=== PATIENT | female | born 1970 | race Caucasian/White ===

== ENCOUNTER 2018-03-17 16:57 | Emergency (ER) | payer MEDICARE, SELFPAY ==
[2018-03-17 17:04] VITALS: BP 155/108; PULSE 98; RESP 17; TEMP 36.7; O2SAT 100; BMI 27.7
[2018-03-17 18:05] LABS: Bacteria Urine None Seen; RBC Urine None Seen (0-5/HPF)
[2018-03-17 18:26] LABS: Appearance Urine UA CLEAR; Bilirubin Urine UA NEGATIVE (NEGATIVE); Color Urine UA YELLOW; Glucose Urine UA NEGATIVE (Normal); Ketones Urine UA NEGATIVE (NEGATIVE); Leukocyte Esterase Urine UA NEGATIVE (NEGATIVE); Nitrite Urine UA Negative (Negative); Occult Blood Urine UA NEGATIVE (Negative); Protein Urine UA NEGATIVE (Negative); Specific Gravity Urine UA <=1.005 (1.000-1.035); Urobilinogen Urine UA 0.2 E.U./dL (0.2); pH Urine UA 6.5 (4.5-8.0)
[2018-03-17 18:27] LABS: Culture Indicated Urine Cult Not Indicated; Squamous Epithelial Cell Urine 0-1 /HPF; WBC Urine 0-1/HPF (0-5/HPF)
--- NOTE | 2018-03-17 18:37 | DI.CT.S_ITS ---
PROCEDURE: CT ABDOMEN PELVIS W CON INDICATIONS: left lateral abd pain at site of mesh x 4 for prior TECHNIQUE: After the administration of oral and intravenous contrast, 5 mm thick sections acquired from the diaphragms to the symphysis. 5 mm thick coronal and sagittal reformats were performed. For radiation dose reduction, the following was used: automated exposure control, adjustment of mA and/or kV according to patient size. COMPARISON: None. FINDINGS: Image quality: Excellent. ABDOMEN: Lung bases: Lung bases are clear. Heart size is normal. Solid organs: Mild hepatic steatosis. Gallbladder surgically absent. Biliary system is non-dilated. Pancreas enhances normally. Spleen is normal in size and enhancement. No adrenal nodules. Punctate left renal calculus image 22 series 2 without evidence of urinary obstruction. Additional lower pole left renal calculus measuring 1 mm on image 33 series 2. Simple appearing cyst in the upper pole right kidney. This measures approximately 3.5 cm Peritoneum and bowel: Stomach, small bowel, and colon loops are normal in caliber and wall thickness. No free fluid or air. Appendix is not clearly identified. The rectum is large amount of stool. There are scattered air-fluid levels in mildly prominent a few small bowel loops. Large amount of stool seen in the sigmoid colon suggestive of constipation. Nodes and vessels: No retroperitoneal or mesenteric adenopathy. Aorta and inferior vena cava are normal in caliber. Miscellaneous: No ventral hernias. There is ill-defined stranding seen within the anterior abdominal wall PELVIS: Genitourinary: Bladder wall thickness is normal. Miscellaneous: No inguinal hernias or adenopathy. Bones: No suspicious bony lesions. No vertebral body compression fractures. IMPRESSION: Mild anterior abdominal wall laxity, with subcutaneous inflammatory stranding in the left periumbilical subcutaneous soft tissues. Recommend clinical correlation. No definite bowel obstruction however a large amount of stool present within the sigmoid colon and rectum suggests severe constipation. If there is persistent clinical concern for developing bowel obstruction, recommend continued surveillance of abdominal series radiographs. Additional chronic and incidental findings as above. Dictated by: Linus Taveras M.D. on 03/17/2018 at 21:13 Approved by: Linus Taveras M.D. on 03/17/2018 at 21:20
[2018-03-17] MEDS: HYDROMORPHONE 0.5 MG INJ IV (18:49)
[2018-03-17] MEDS: METOCLOPRAMIDE 10 MG/2 ML INJ IV (18:49)
[2018-03-17] MEDS: SODIUM CHLORIDE 0.9% 1,000 ML 1000 ML IV (18:50)
[2018-03-17 19:04] LABS: Urine Amphetamines Positive (Negative); Urine Cocaine Negative (Negative); Urine Tetrahydrocannabinol Negative (Negative)
[2018-03-17 19:05] LABS: Urine Methamphetamines Negative (Negative); Urine Morphine/Opi cutoff 2000 Negative (Negative)
[2018-03-17 19:06] LABS: Urine Barbiturates Negative (Negative); Urine Benzodiazepines Positive (Negative); Urine MDMA Negative (Negative); Urine Methadone Negative (Negative); Urine Oxycodone Negative (Negative); Urine Phencyclidine Negative (Negative); Urine Tricyclic Antidepressant Negative (Negative)
--- NOTE | 2018-03-17 19:06 | DIET.PN ---
pt with extensive abdominal surgery, colon resection, only has 14 cm, had colonoscopy/endoscopy 4 weeks ago at [facility], developed abdominal pain for the last 3 weeks, blood in the stool 2 weeks ago, now concern last bm 2 days ago and with nausea. denies vomiting.
[2018-03-17] MEDS: diphenhydrAMINE 50 MG/ML VIAL IV (19:15)
[2018-03-17 19:28] LABS: Add Manual Diff / Slide Review NO; Basophils Percent Auto 0.6 % (0-2); Eosinophils Percent Auto 0.9 % (2-4); Hematocrit 40.4 % (36-46); Hemoglobin 13.7 g/dL (12.0-16.0); Mean Corpuscular HGB Conc 33.8 % (30-36); Mean Corpuscular Hemoglobin 31.3 PG (26-34); Mean Corpuscular Volume 92.7 fL (80-100); Monocytes Percent Auto 9.3 % (3-14); Neutrophils Absolute Auto 4900 /uL (3000-5900); Neutrophils Percent Auto 62.2 % (50-75); Platelet Count 396 X10^3/uL (150-400); Red Blood Cell Count 4.36 X10^6/uL (4.0-5.2); Red Cell Distribution Width 12.7 % (11.6-14.8); White Blood Cell Count 7.9 X10^3/uL (4.5-11.0)
[2018-03-17 19:36] LABS: Pregnancy Test Urine Negative (Negative)
[2018-03-17 19:41] LABS: Alanine Aminotransferase 119 IU/L (9-52); Albumin 4.5 g/dL (3.5-5.0); Albumin Globulin Ratio 1.1 (1.0-2.8); Alkaline Phosphatase 61 U/L (38-126); Aspartate Aminotransferase 102 IU/L (14-36); BUN Creatinine Ratio 16.7 (6-22); Bilirubin Total 0.9 mg/dL (0.2-1.3); Blood Urea Nitrogen 15 mg/dL (7-17); Calcium 9.8 mg/dL (8.4-10.2); Carbon Dioxide 25 mmol/L (22-32); Chloride 104 mmol/L (98-107); Estimated Glomerular Filt Rate > 60.0 mL/min (>60); Globulin 4.1 g/dL (1.7-4.1); Glucose 78 mg/dL (70-100); Lactate (Lactic Acid) 1.9 mmol/L (0.7-2.1); Lipase 74 U/L (23-300); Sodium 141 mmol/L (137-145); Total Protein 8.6 g/dL (6.3-8.2)
[2018-03-17 19:44] LABS: HEMOLYSIS 71 (0-50); Potassium 5.6 mmol/L (3.4-5.1)
[2018-03-17 20:04] VITALS: BP 159/104; PULSE 77; RESP 18; O2SAT 100
--- NOTE | 2018-03-17 20:14 | PC.NURSE ---
Pt has requested more pain medication, discussed pain management with Dr. Black, states he wants to wait until CT scan is resulted. Informed pt of Dr. Black's plan, pt in agreement.
--- NOTE | 2018-03-17 21:55 | ED_ITS ---
HPI - Abdominal Pain General Chief Complaint: Abdominal Pain Stated Complaint: SEVERE BDOMINAL PAIN Time Seen by Provider: 03/17/18 17:17 History of Present Illness HPI narrative: HPI 47-year-old female with a history notable for opiate induced constipation with partial colectomy now s/p mesh hernia repair x 4 presents for evaluation of 2-3 weeks of gradual onset left sided abdominal discomfort, nausea, and infrequent nonbloody, nonbilious emesis, patient reports one week of minimal to no stooling and worsening pain at her prior mesh repair sites. Patient denies fevers, chills, dysuria, urinary frequency, vaginal discharge or discomfort. Patient unable to identify any provoking or relieving factors. Patient continues to take PO adequately produce urine at baseline. M/S/F/SocHx notable for: PTSD, ADHD, polysubstance abuse, hep C, opiate induced constipation with partial colectomy now s/p mesh hernia repair x 4; remainder reviewed with patient and in chart. ROS: Negative constitutional, eye, cardiovascular, pulmonary, GI, , MSK, skin , neurologic, psychiatric, endocrine unless noted in the HPI. Exam Gen: Pleasant, non-toxic appearing, resting comfortably. Mandatory comfortably with a normal narrow based nonantalgic gait. HEENT: NC, AT, PEERL, EOMI. Resp: Clear to auscultation bilaterally, normal work of breathing, no accessory muscle usage. Card: Regular rate and rhythm with no murmurs, rubs, or gallops, extremities warm and well perfused. GI: mild to moderate left sided mid abdominal tenderness to palpation without rebound or guarding, numerous predominantly periumbilical and left sided surgical scars. Remainder of abdomen nontender to palpation, no rebound, no guarding. : No suprapubic tenderness to palpation. No CVA tenderness bilaterally. MSK: No visible deformities, strength and tone without visually appreciable deficit. Skin: Normal color with no visible lesions. Neuro: AO x 3, no facial asymmetry, vision and hearing WNL. Psych: Mood and affect appropriate. Labs / Imaging: WBC 7.9, Hb 13.7, Na 141, K 5.6, Cr 0.90, BUN 15, lactic 1.9, AST 2, ALT 19, total bilirubin 0.9, ALT 61, lipase 74. UA - negative nitrate, negative leukocyte esterase, no bacteria, 0-1 squamous epithelial cells. UDS with amphetamines and benzodiazepines. CT abdomen/pelvis: mild anterior abdominal wall laxity, with subcutaneous inflammatory stranding the left periumbilical subcutaneous soft tissues. Recommend clinical correlation. No definite bowel obstruction, however a large amount of stool present within and sigmoid colon and rectum suggests severe constipation. If there is persistent clinical concern for developing bowel obstruction, recommend continued surveillance of abdominal series radiographs. Additional chronic incidental findings as in the full report. MDM Previous chart, nursing note, labs, imaging, and vitals reviewed. A: 47-year-old female with a history notable for opiate induced constipation with partial colectomy now s/p mesh hernia repair x 4 presents for evaluation of 2-3 weeks of gradual onset left sided abdominal discomfort, nausea, and infrequent nonbloody, nonbilious emesis, patient reports one week of minimal to no stooling and worsening pain at her prior mesh repair sites. DDX: constipation, constipation, obstruction, ischemic bowel, internal hernia, colitis, diverticulitis, UTI, ureterolithiasis, pyelonephritis. Evaluation: imaging notable for significant constipation, history and exam without findings suggestive of a bowel obstruction, UA without evidence of infection. Such as inflammatory stranding left periumbilical soft tissues noted on imaging, this corresponds to area tenderness, overlying skin is visually normal without palpable abnormalities (other than tenderness). Currently this inflammation is of unclear etiology, discussion was had with the patient regarding a trial of antibiotics and anti-inflammatories and repeat evaluation. Initiation of treatment in the emergency department for treatment of patient's severe constipation was recommended. However patient wished to be discharged and will attempt to address her constipation at home. Patient was given home bowel cleanout instructions and instructed to follow up within 24 hours repeat evaluation. Cephalexin and ibuprofen prescribed. Impression: constipation, subcutaneous inflammation (please reference below for remainder of encounter information) Related Data Home Medications Medication Instructions Recorded Confirmed diclofenac sodium 1 applic TOPICAL QID PRN 03/17/18 03/17/18 diclofenac sodium 1 tab PO DAILY 03/17/18 03/17/18 duloxetine 1 cap PO DAILY 03/17/18 03/17/18 gabapentin 100 mg PO TID PRN 03/17/18 03/17/18 omeprazole 20 mg PO DAILY 03/17/18 03/17/18 triazolam 1 dose PO DIRECTED 03/17/18 03/17/18 varenicline [Chantix Starting See Label Instructions .ROUTE 03/17/18 03/17/18 Month Box] .COMPLEX Previous Rx's Medication Instructions Recorded alprazolam 0.5 mg tablet 0.5 mg PO ONCE #30 tab 02/16/18 lamotrigine 200 mg tablet 200 mg PO QDAY #30 tab 02/16/18 dextroamphetamine-amphetamine ER 30 mg PO QAM #30 cap 03/16/18 30 mg 24hr capsule,extend release Allergies Allergy/AdvReac Type Severity Reaction Status Date / Time ketorolac [From TORADOL] Allergy Unknown HIVES Verified 03/17/18 17:04 morphine [MORPHINE] Allergy Unknown HIVES Verified 03/17/18 17:04 FOR[facility]LY [facility] Social History Smoking Status: Current every day smoker Exam Initial Vital Signs Initial Vital Signs: Vital Signs Temperature 98.0 F 03/17/18 17:04 Pulse Rate 98 H 03/17/18 17:04 Respiratory Rate 17 03/17/18 17:04 Blood Pressure 155/108 H 03/17/18 17:04 Pulse Oximetry 100 03/17/18 17:04 Course Orders Ordered: ED Orders 03/17/18 17:11 Urinalysis and Microscopic Stat 03/17/18 18:15 Complete Blood Count AUTO DIFF Stat Comprehensive Metabolic Panel Stat Lactate (Lactic Acid) Stat Lipase Stat 03/17/18 18:37 CT abdomen pelvis w con Stat 03/17/18 18:48 Urine Drug Screen, Rapid Stat 03/17/18 19:28 Test Urine Stat Discontinued Medications Diphenhydramine HCl (Benadryl) 50 mg IV NOW ONE Stop: 03/17/18 19:12 Last Admin: 03/17/18 19:15 Dose: 50 mg Glycerin (Sani-Supp) 2 each CA NOW ONE Stop: 03/17/18 21:32 Hydromorphone HCl (Dilaudid) 0.5 mg IV NOW ONE Stop: 03/17/18 18:39 Last Admin: 03/17/18 18:49 Dose: 0.5 mg Sodium Chloride (Normal Saline 0.9%) 1,000 mls @ 1,000 mls/hr IV BOLUS ONE Stop: 03/17/18 19:34 Last Infusion: 03/17/18 20:30 Dose: 0 mls/hr Admin: 03/17/18 18:50 Dose: 1,000 mls/hr Magnesium Citrate (Magnesium Citrate) 300 ml PO NOW ONE Stop: 03/17/18 21:32 Metoclopramide HCl (Reglan) 10 mg IV NOW ONE Stop: 03/17/18 18:39 Last Admin: 03/17/18 18:49 Dose: 10 mg Vital Signs - 8 hr 03/17/18 17:04 03/17/18 20:04 Temperature 98.0 F Pulse Rate 98 H 77 Respiratory Rate 17 18 Blood Pressure 155/108 H Blood Pressure [Right Arm] 159/104 H Pulse Oximetry 100 100 MDM - Abdominal Pain Lab Data Result diagrams: 03/17/18 18:15 03/17/18 18:15 Lab Results 03/17/18 03/17/18 03/17/18 Range/Units 17:11 18:15 18:15 WBC 7.9 (4.5-11.0) X10^3/uL RBC 4.36 (4.0-5.2) X10^6/uL Hgb 13.7 (12.0-16.0) g/dL Hct 40.4 (36-46) % MCV 92.7 (80-100) fL MCH 31.3 (26-34) PG MCHC 33.8 (30-36) % RDW 12.7 (11.6-14.8) % Plt Count 396 (150-400) X10^3/uL Neut % (Auto) 62.2 (50-75) % Lymph % (Auto) 27.0 (25-40) % Stewart % (Auto) 9.3 (3-14) % Eos % (Auto) 0.9 L (2-4) % Baso % (Auto) 0.6 (0-2) % Neut # (Auto) 4900 (8999-3957) /uL Sodium 141 (137-145) mmol/L Potassium 5.6 H (3.4-5.1) mmol/L Chloride 104 (98-107) mmol/L Carbon Dioxide 25 (22-32) mmol/L BUN 15 (7-17) mg/dL Creatinine 0.90 (0.52-1.04) mg/dL Estimated GFR > 60.0 (>60) mL/min BUN/Creatinine Ratio 16.7 (6-22) Glucose 78 (70-100) mg/dL Lactate (0.7-2.1) mmol/L Calcium 9.8 (8.4-10.2) mg/dL Total Bilirubin 0.9 (0.2-1.3) mg/dL AST 102 H (14-36) IU/L ALT 119 H (9-52) IU/L Alkaline Phosphatase 61 (38-126) U/L Total Protein 8.6 H (6.3-8.2) g/dL Albumin 4.5 (3.5-5.0) g/dL Globulin 4.1 (1.7-4.1) g/dL Albumin/Globulin Ratio 1.1 (1.0-2.8) Lipase (23-300) U/L Urine Color Yellow Urine Appearance Clear Urine pH 6.5 (4.5-8.0) Ur Specific [place] <=1.005 (1.000-1.035) Urine Protein Negative (Negative) Urine Glucose (UA) Negative (Normal) g/dL Urine Ketones Negative (NEGATIVE) Urine Occult Blood Negative (Negative) Urine Nitrate Negative (Negative) Urine Bilirubin Negative (NEGATIVE) Urine Urobilinogen 0.2 (0.2) E.U./dL Ur Leukocyte Esterase Negative (NEGATIVE) Urine RBC None seen (0-5/HPF) Urine WBC 0-1/hpf (0-5/HPF) Ur Squamous Epith Cells 0-1 /hpf Urine Bacteria None seen (None) Ur Culture Indicated? Cult not indicated Micro UA Comment Not Reportable Urine Test (Negative) Urine Opiates Screen (Negative) Ur Oxycodone Screen (Negative) Urine Methadone Screen (Negative) Ur Barbiturates Screen (Negative) U Tricyclic Antidepress (Negative) Ur Phencyclidine Scrn (Negative) Ur Amphetamines Screen (Negative) U Methamphetamines Scrn (Negative) Ur MDMA Scrn (Ecstasy) (Negative) U Benzodiazepines Scrn (Negative) Urine Cocaine Screen (Negative) U Marijuana (THC) Screen (Negative) 03/17/18 03/17/18 03/17/18 Range/Units 18:15 18:15 18:48 WBC (4.5-11.0) X10^3/uL RBC (4.0-5.2) X10^6/uL Hgb (12.0-16.0) g/dL Hct (36-46) % MCV (80-100) fL MCH (26-34) PG MCHC (30-36) % RDW (11.6-14.8) % Plt Count (150-400) X10^3/uL Neut % (Auto) (50-75) % Lymph % (Auto) (25-40) % Stewart % (Auto) (3-14) % Eos % (Auto) (2-4) % Baso % (Auto) (0-2) % Neut # (Auto) (9671-1417) /uL Sodium (137-145) mmol/L Potassium (3.4-5.1) mmol/L Chloride (98-107) mmol/L Carbon Dioxide (22-32) mmol/L BUN (7-17) mg/dL Creatinine (0.52-1.04) mg/dL Estimated GFR (>60) mL/min BUN/Creatinine Ratio (6-22) Glucose (70-100) mg/dL Lactate 1.9 (0.7-2.1) mmol/L Calcium (8.4-10.2) mg/dL Total Bilirubin (0.2-1.3) mg/dL AST (14-36) IU/L ALT (9-52) IU/L Alkaline Phosphatase (38-126) U/L Total Protein (6.3-8.2) g/dL Albumin (3.5-5.0) g/dL Globulin (1.7-4.1) g/dL Albumin/Globulin Ratio (1.0-2.8) Lipase 74 (23-300) U/L Urine Color Urine Appearance Urine pH (4.5-8.0) Ur Specific [place] (1.000-1.035) Urine Protein (Negative) Urine Glucose (UA) (Normal) g/dL Urine Ketones (NEGATIVE) Urine Occult Blood (Negative) Urine Nitrate (Negative) Urine Bilirubin (NEGATIVE) Urine Urobilinogen (0.2) E.U./dL Ur Leukocyte Esterase (NEGATIVE) Urine RBC (0-5/HPF) Urine WBC (0-5/HPF) Ur Squamous Epith Cells Urine Bacteria (None) Ur Culture Indicated? Micro UA Comment Urine Test (Negative) Urine Opiates Screen Negative (Negative) Ur Oxycodone Screen Negative (Negative) Urine Methadone Screen Negative (Negative) Ur Barbiturates Screen Negative (Negative) U Tricyclic Antidepress Negative (Negative) Ur Phencyclidine Scrn Negative (Negative) Ur Amphetamines Screen Positive H (Negative) U Methamphetamines Scrn Negative (Negative) Ur MDMA Scrn (Ecstasy) Negative (Negative) U Benzodiazepines Scrn Positive H (Negative) Urine Cocaine Screen Negative (Negative) U Marijuana (THC) Screen Negative (Negative) 03/17/18 Range/Units 19:28 WBC (4.5-11.0) X10^3/uL RBC (4.0-5.2) X10^6/uL Hgb (12.0-16.0) g/dL Hct (36-46) % MCV (80-100) fL MCH (26-34) PG MCHC (30-36) % RDW (11.6-14.8) % Plt Count (150-400) X10^3/uL Neut % (Auto) (50-75) % Lymph % (Auto) (25-40) % Stewart % (Auto) (3-14) % Eos % (Auto) (2-4) % Baso % (Auto) (0-2) % Neut # (Auto) (3623-7776) /uL Sodium (137-145) mmol/L Potassium (3.4-5.1) mmol/L Chloride (98-107) mmol/L Carbon Dioxide (22-32) mmol/L BUN (7-17) mg/dL Creatinine (0.52-1.04) mg/dL Estimated GFR (>60) mL/min BUN/Creatinine Ratio (6-22) Glucose (70-100) mg/dL Lactate (0.7-2.1) mmol/L Calcium (8.4-10.2) mg/dL Total Bilirubin (0.2-1.3) mg/dL AST (14-36) IU/L ALT (9-52) IU/L Alkaline Phosphatase (38-126) U/L Total Protein (6.3-8.2) g/dL Albumin (3.5-5.0) g/dL Globulin (1.7-4.1) g/dL Albumin/Globulin Ratio (1.0-2.8) Lipase (23-300) U/L Urine Color Urine Appearance Urine pH (4.5-8.0) Ur Specific [place] (1.000-1.035) Urine Protein (Negative) Urine Glucose (UA) (Normal) g/dL Urine Ketones (NEGATIVE) Urine Occult Blood (Negative) Urine Nitrate (Negative) Urine Bilirubin (NEGATIVE) Urine Urobilinogen (0.2) E.U./dL Ur Leukocyte Esterase (NEGATIVE) Urine RBC (0-5/HPF) Urine WBC (0-5/HPF) Ur Squamous Epith Cells Urine Bacteria (None) Ur Culture Indicated? Micro UA Comment Urine Test Negative (Negative) Urine Opiates Screen (Negative) Ur Oxycodone Screen (Negative) Urine Methadone Screen (Negative) Ur Barbiturates Screen (Negative) U Tricyclic Antidepress (Negative) Ur Phencyclidine Scrn (Negative) Ur Amphetamines Screen (Negative) U Methamphetamines Scrn (Negative) Ur MDMA Scrn (Ecstasy) (Negative) U Benzodiazepines Scrn (Negative) Urine Cocaine Screen (Negative) U Marijuana (THC) Screen (Negative) Discharge Plan Departure Prescriptions: No Action lamotrigine [Lamictal] 200 mg tablet 200 mg PO QDAY Qty: 30 RF: 2 alprazolam 0.5 mg tablet 0.5 mg PO ONCE Qty: 30 RF: 1 dextroamphetamine-amphetamine 30 mg capsule,extended release 24hr 30 mg PO QAM Qty: 30 RF: 0 omeprazole 20 mg capsule,delayed release(DR/EC) 20 mg PO DAILY RF: 0 diclofenac sodium 75 mg tablet,delayed release (DR/EC) 1 tab PO DAILY RF: 0 gabapentin 100 mg capsule 100 mg PO TID PRN (Reason: Anxiety) RF: 0 duloxetine 60 mg capsule,delayed release(DR/EC) 1 cap PO DAILY RF: 0 varenicline [Chantix Starting Month Box] 0.5 mg (11)- 1 mg (42) tablets,dose pack See Label Instructions .ROUTE .COMPLEX RF: 0 diclofenac sodium 1 % gel 1 applic Topical QID PRN (Reason: unknown) RF: 0 triazolam 0.25 mg tablet 1 dose PO DIRECTED RF: 0
[2018-03-17] MEDS: MAGNESIUM CITRATE 300 ML SOLUTION PO (22:19)
[2018-03-17] MEDS: GLYCERIN SUPP ADULT 1 SUPP 2 EACH PR (22:19)
[2018-03-17 22:21] VITALS: BP 155/80; PULSE 75; RESP 18; TEMP 36.9; O2SAT 100
== END 2018-03-17 22:20 | disposition home or self-care (01) ==
PROVIDERS: Emergency Medicine; Emergency Provider Emergency Medicine
DX: K59.00 Constipation, unspecified (principal)
CPT/HCPCS: 36591; 74177; 80053; 80305; 81001; 81025; 83605; 83690; 85025; 99283; J1170; J1200; J2765; Q9967

== ENCOUNTER 2018-12-26 08:35 | Emergency (ER) | payer MEDICARE, SELFPAY ==
--- NOTE | 2018-12-26 08:40 | ED.ABDPAIN ---
HPI - Abdominal Pain General Chief Complaint: Upper Respiratory Symptoms Stated Complaint: States sick 3days; stomach pain, headache, achy Time Seen by Provider: 12/26/18 08:35 Source: patient Mode of arrival: ambulatory Limitations: no limitations History of Present Illness HPI narrative: 48F smoker with history of opioid abuse and subsequent bowel surgery presents with N/V/D and now a headache x3 days. Patient denies travel, antibiotics, but has been exposed to ill persons. She is a bit dizzy. Patient initially presented to an urgent care clinic a few days ago and attempted to go to the [facility] emergency department last night but they were quite busy and she ended up leaving. She has had low-grade fever and generally feels unwell. She denies any cough, shortness of breath or chest pain. She does have some crampy abdominal pain which seems to improve a bit with bowel movements MD complaint: abdominal pain Onset (ago): day(s) Pain Consistency: intermittent and now resolved Location: diffuse Severity: moderate Quality: cramping Radiation: none Migration to: no migration Relieving factors: nothing Exacerbating factors: nothing Associated symptoms: nausea, vomiting and diarrhea Related Data Home Medications Medication Instructions Recorded Confirmed diclofenac sodium 1 applic TOPICAL QID PRN 03/17/18 11/11/18 diclofenac sodium 1 tab PO DAILY 03/17/18 11/11/18 omeprazole 20 mg PO DAILY 03/17/18 11/11/18 buprenorphine 8 mg-naloxone 2 mg 1 film SL DAILY 08/11/18 11/11/18 sublingual film glecaprevir 100 mg-pibrentasvir 40 PO 28 Days #84 tab 08/11/18 11/11/18 mg tablet Previous Rx's Medication Instructions Recorded duloxetine 60 mg capsule,delayed 60 mg PO DAILY #90 cap 10/14/18 release lamotrigine 200 mg tablet 200 mg PO QDAY #90 tab 10/14/18 dextroamphetamine-amphetamine ER 30 mg PO QAM #30 cap 11/11/18 30 mg 24hr capsule,extend release dextroamphetamine-amphetamine ER 30 mg PO QAM #30 cap 11/11/18 30 mg 24hr capsule,extend release dextroamphetamine-amphetamine ER 30 mg PO QAM #30 cap 11/11/18 30 mg 24hr capsule,extend release trazodone 50 mg tablet 50 mg PO DAILY PRN #30 tab 12/09/18 ondansetron 4 mg PO TID-QID PRN #20 tab 12/26/18 oseltamivir [Tamiflu] 75 mg PO BID 5 Days #10 cap 12/26/18 Allergies Allergy/AdvReac Type Severity Reaction Status Date / Time metoclopramide [From Reglan] Allergy Intermediate restless Verified 12/26/18 08:50 leg syndrome ketorolac [From TORADOL] Allergy Unknown HIVES Verified 12/26/18 08:50 morphine [MORPHINE] Allergy Unknown HIVES Verified 12/26/18 08:50 tramadol Allergy Hives Verified 12/26/18 09:17 Review of Systems Review of Systems ROS Unobtainable: All systems reviewed & are unremarkable except as noted in HPI and below Constitutional Denies chills, Denies fever(s), Reports headache(s), Denies lethargy and Reports weakness Eyes Denies change in vision, Denies eye discharge, Denies irritation and Denies loss of vision ENT Ears, Nose, Mouth, and Throat: Denies change in voice, Reports headache(s), Denies neck pain and Reports sore throat Cardiovascular Denies chest pain, Denies irregular heart rhythm, Denies lightheadedness, Denies palpitations, Denies dyspnea, Denies dyspnea on exertion and Denies orthopnea Respiratory Denies cough, Denies dyspnea, Denies dyspnea on exertion and Denies wheezing Gastrointestinal Gastrointestinal: Reports abdominal pain, Denies change in bowel habits, Reports diarrhea, Reports nausea and Reports vomiting Genitourinary Denies hematuria, Denies flank pain, Denies urinary incontinence and Denies urinary urgency Musculoskeletal Denies neck pain Integumentary/Breasts Denies pruritus, Denies erythema, Denies rash and Denies wounds Neurologic Denies confusion, Reports headache(s), Denies loss of vision and Reports weakness Psychiatric Denies anxiety, Denies confusion, Denies depression, Denies homicidal ideation and Denies suicidal ideation Endocrine Denies palpitations Hematologic/Lymphatic Denies easy bruising Allergic/Immunologic Denies wheezing PFSH Social History Smoking Status: Current every day smoker Social History Smoking Status: Current every day smoker Exam Narrative Exam Narrative: GENERAL: 48-year-old female appears stated age, clearly not feeling well HEAD: Atraumatic. Normocephalic. No temporal or scalp tenderness. EYES: Pupils equal round and reactive. Extraocular motions intact. No scleral icterus. No injection or drainage. ENT: Nose without bleeding, purulent drainage or septal hematoma. Throat without erythema, tonsillar hypertrophy or exudate. Uvula midline. Airway patent. NECK: Trachea midline. No JVD or lymphadenopathy. Supple, nontender, no meningeal signs. CARDIOVASCULAR: Regular rate and rhythm without murmurs, gallops, or rubs. RESPIRATORY: Clear to auscultation. Breath sounds equal bilaterally. No wheezes, rales, or rhonchi. GASTROINTESTINAL: Abdomen soft, generalized tenderness, nondistended. No hepato-splenomegaly, or palpable masses. No guarding. EXTREMITIES: No clubbing, cyanosis, or edema. No joint tenderness, effusion, or edema noted. BACK: Nontender without deformity or crepitance. No flank tenderness. NEURO: AOx3. SKIN: No rash or erythema. Initial Vital Signs Initial Vital Signs: Vital Signs Temperature 99.1 F 12/26/18 08:43 Pulse Rate 113 H 12/26/18 08:43 Respiratory Rate 22 12/26/18 08:43 Blood Pressure 157/118 H 12/26/18 08:43 Pulse Oximetry 99 12/26/18 08:43 Course Orders Ordered: ED Orders 12/26/18 08:55 Basic Metabolic Panel Stat Complete Blood Count AUTO DIFF Stat 12/26/18 09:00 Influenza A and B by PCR Rapid Stat Discontinued Medications Sodium Chloride (Normal Saline 0.9%) 1,000 mls @ 1,000 mls/hr IV BOLUS ONE Stop: 12/26/18 09:53 Last Admin: 12/26/18 09:58 Dose: Not Given Ondansetron HCl (Zofran Odt) 4 mg SL NOW ONE Stop: 12/26/18 08:55 Last Admin: 12/26/18 09:02 Dose: 4 mg Sumatriptan Succinate (Imitrex) 6 mg SUBCUT NOW ONE Stop: 12/26/18 08:55 Last Admin: 12/26/18 09:02 Dose: 6 mg Reevaluation(s) Reevaluation #1: patient feeling much better after Imitrex and zofran. She wishes to go. She is admittedly a difficult IV start and doesn't want us to try anymore. Vital Signs - 8 hr 12/26/18 08:43 Temperature 99.1 F Pulse Rate 113 H Respiratory Rate 22 Blood Pressure 157/118 H Pulse Oximetry 99 MDM - Abdominal Pain Lab Data Lab Results 12/26/18 Range/Units 09:00 Influenza A & B (PCR) Positive, type a H (Negative) Point of care testing: Urine Dip Bedside Urine Glucose Negative Bedside Urine Bilirubin - Negative Bedside Urine Ketone - Negative Urine Specific [place] 1.015 Bedside Urine Occult Blood - Negative Bedside Urine pH 6.0 Bedside Urine Protein - Negative Bedside Urine Urobilinogen - Negative Bedside Urine Nitrite - Negative Bedside Urine Leukocytes - Negative Esterase Discharge Plan Departure Patient Disposition: Home Clinical Impression: Flu Instructions: DI for Influenza -- Adult Activity Restrictions/Additional Instructions: 1. Drink plenty of fluids with frequent small sips. 2. For the next 24 hours a clear liquid diet is advised. After that please employ a brat diet which would include bananas, rice, apples, toast. 3. Please take medications as directed. Your prescriptions have been electronically transmitted to [facility] in [place] at your request 4. Please follow-up with your doctor in the next 1-2 days. Call the office for an appointment. 5. Please return to the emergency Department for any worsening or persistent symptoms, such as increasing pain or fever. Prescriptions: New oseltamivir [Tamiflu] 75 mg capsule 75 mg PO BID 5 Days Qty: 10 RF: 0 ondansetron 4 mg tablet,disintegrating 4 mg PO TID-QID PRN (Reason: nausea and vomiting) Qty: 20 RF: 0 No Action glecaprevir-pibrentasvir 100-40 mg tablet PO 28 Days Qty: 84 RF: 0 buprenorphine-naloxone [Suboxone] 8-2 mg film 1 film SL DAILY RF: 0 dextroamphetamine-amphetamine 30 mg capsule,extended release 24hr 30 mg PO QAM Qty: 30 RF: 0 dextroamphetamine-amphetamine 30 mg capsule,extended release 24hr 30 mg PO QAM Qty: 30 RF: 0 dextroamphetamine-amphetamine 30 mg capsule,extended release 24hr 30 mg PO QAM Qty: 30 RF: 0 lamotrigine [Lamictal] 200 mg tablet 200 mg PO QDAY Qty: 90 RF: 1 duloxetine 60 mg capsule,delayed release(DR/EC) 60 mg PO DAILY Qty: 90 RF: 1 trazodone 50 mg tablet 50 mg PO DAILY PRN (Reason: insomnia) Qty: 30 RF: 1 omeprazole 20 mg capsule,delayed release(DR/EC) 20 mg PO DAILY RF: 0 diclofenac sodium 75 mg tablet,delayed release (DR/EC) 1 tab PO DAILY RF: 0 diclofenac sodium 1 % gel 1 applic Topical QID PRN (Reason: unknown) RF: 0
[2018-12-26 08:43] VITALS: BP 157/118; PULSE 113; RESP 22; TEMP 37.3; O2SAT 99; BMI 28.0
[2018-12-26] MEDS: ONDANSETRON 4 MG ODT SL (09:02)
[2018-12-26] MEDS: SUMAtriptan 6 MG/0.5 ML VIAL SUBCUT (09:02)
--- NOTE | 2018-12-26 09:07 | PC.NURSE ---
States is a former IV drug user and request po/sq meds before IV is done as difficult start.
[2018-12-26 10:13] VITALS: BP 159/84; PULSE 83; RESP 20; O2SAT 98
== END 2018-12-26 10:13 | disposition home or self-care (01) ==
PROVIDERS: Emergency Provider Emergency Medicine
DX: J11.1 Influenza due to unidentified influenza virus with other respiratory manifestations (principal)
CPT/HCPCS: 36415; 81003; 87400; 96372; 99283; J3030

== ENCOUNTER 2019-02-25 16:13 | Emergency (ER) | payer MEDICARE, SELFPAY ==
[2019-02-25 16:21] VITALS: BP 145/92; PULSE 98; RESP 16; TEMP 36.4; O2SAT 100; BMI 26.4
--- NOTE | 2019-02-25 16:38 | ED_ITS ---
HPI - Abdominal Pain General Chief Complaint: Abdominal Pain Stated Complaint: states abdominal pain Time Seen by Provider: 02/25/19 16:38 Source: patient Mode of arrival: ambulatory Limitations: no limitations History of Present Illness HPI narrative: Patient is a 48-year-old female here for evaluation of left-sided abdominal pain. Patient states she has had multiple abdominal surgeries in the past secondary to ? gut ?she stated that this was secondary to her opioid use in the past. She states she has had a colectomy. Has a large midline abdominal scar. States that earlier today she started having left-sided abdominal pain. She has had kidney stones the past but feels like this is different than her kidney stones. She also has had multiple episodes of vomiting. Her menstrual cycle was the beginning of the month. She is not currently on control. Related Data Home Medications Medication Instructions Recorded Confirmed glecaprevir 100 mg-pibrentasvir 40 3 tab PO DAILY 28 Days #84 tab 08/11/18 02/02/19 mg tablet buprenorphine-naloxone [Suboxone] 1 film SUBLINGUAL DAILYX4 02/25/19 02/25/19 dextroamphetamine-amphetamine 30 mg PO QAM 02/25/19 02/25/19 lamotrigine [Lamictal] 200 mg PO DAILY 02/25/19 02/25/19 oxycodone-acetaminophen 1 tab PO Q4-6H PRN 02/25/19 02/25/19 ranitidine HCl 300 mg PO BEDTIME 02/25/19 02/25/19 sumatriptan succinate 50 mg PO PRN PRN 02/25/19 02/25/19 trazodone 50 mg PO BEDTIME PRN 02/25/19 02/25/19 Previous Rx's Medication Instructions Recorded ondansetron 4 mg PO TID-QID PRN #20 tab 12/26/18 duloxetine 60 mg capsule,delayed 60 mg PO DAILY #90 cap 02/02/19 release hydroxyzine pamoate 25 mg capsule 25 mg PO Q6-8H PRN #360 cap 02/02/19 Allergies Allergy/AdvReac Type Severity Reaction Status Date / Time metoclopramide [From Reglan] Allergy Intermediate restless Verified 02/25/19 16:21 leg syndrome ketorolac [From TORADOL] Allergy Unknown HIVES Verified 02/25/19 16:21 morphine [MORPHINE] Allergy Unknown HIVES Verified 02/25/19 16:21 tramadol Allergy Hives Verified 02/25/19 16:21 Review of Systems Constitutional Denies fever(s) Cardiovascular Denies chest pain and Denies dyspnea Respiratory Denies dyspnea Gastrointestinal Gastrointestinal: Reports abdominal pain, Denies constipation, Reports nausea and Reports vomiting Genitourinary Denies dysuria and Denies vaginal discharge Musculoskeletal Denies myalgias and Denies arthralgias Integumentary/Breasts Denies rash Neurologic Denies behavioral changes Psychiatric Denies behavioral changes Hematologic/Lymphatic Denies easy bleeding and Denies easy bruising PFSH Medical History Opioid abuse (Acute) Surgical History H/O colectomy (Acute) Social History Smoking Status: Current every day smoker Social History Smoking Status: Current every day smoker Exam Initial Vital Signs Initial Vital Signs: Vital Signs Temperature 97.5 F L 02/25/19 16:21 Pulse Rate 98 H 02/25/19 16:21 Respiratory Rate 16 02/25/19 16:21 Blood Pressure 145/92 H 02/25/19 16:21 Pulse Oximetry 100 02/25/19 16:21 Const General: cooperative, well developed, well groomed and No acute distress Orientation: alert, awake and oriented x3 HENMT Head: normal to inspection and normocephalic Chest Other: Patient with a golf ball size freely movable mass in the upper outer quadrant of the right breast. No overlying skin changes. Resp Effort & Inspection: normal respiratory effort Auscultation: clear to auscultation bilaterally Cardio Rate: regular rate Rhythm: regular rhythm GI Inspection: non-distended Palpation: soft, No firm and No tender Skin Lesions: no lesions Rashes: no rashes Other: Well-healed midline abdominal scar consistent with her stated history Neuro General: alert and awake Cognition: normal cognition Speech: speech normal Extrem General: normal to inspection and capillary refill normal Course Orders Ordered: ED Orders 02/25/19 16:32 Complete Blood Count AUTO DIFF Stat EKG-12 Lead Stat 02/25/19 16:50 CT abdomen pelvis w con Stat US breast RT limited Stat 02/25/19 17:15 Comprehensive Metabolic Panel Stat Lipase Stat Partial Thromboplastin Time Stat Prothrombin Time INR Stat 02/25/19 17:45 Lactate (Lactic Acid) Stat Discontinued Medications Hydromorphone HCl (Dilaudid) 0.5 mg IV NOW ONE Stop: 02/25/19 17:33 Last Admin: 02/25/19 17:40 Dose: 0.5 mg Sodium Chloride (Normal Saline 0.9%) 1,000 mls @ 1,000 mls/hr IV BOLUS ONE Stop: 02/25/19 17:48 Last Admin: 02/25/19 17:40 Dose: 1,000 mls/hr Morphine Sulfate (Morphine) 4 mg IV NOW ONE Stop: 02/25/19 16:50 Last Admin: 02/25/19 17:57 Dose: Not Given Ondansetron HCl (Zofran) 4 mg IV NOW ONE Stop: 02/25/19 16:50 Last Admin: 02/25/19 17:39 Dose: 4 mg Vital Signs - 8 hr 02/25/19 16:21 02/25/19 18:30 Temperature 97.5 F L Pulse Rate 98 H 82 Respiratory Rate 16 14 Blood Pressure 145/92 H Blood Pressure [Left Arm] 151/94 H Pulse Oximetry 100 100 MDM - Abdominal Pain Lab Data Attestation: I reviewed the patient's lab results. Result diagrams: 02/25/19 16:32 02/25/19 17:15 Lab Results 02/25/19 02/25/19 02/25/19 Range/Units 16:32 17:15 17:15 WBC 9.0 (4.5-11.0) X10^3/uL RBC 4.25 (4.0-5.2) X10^6/uL Hgb 13.3 (12.0-16.0) g/dL Hct 39.1 (36-46) % MCV 92.1 (80-100) fL MCH 31.2 (26-34) PG MCHC 33.9 (30-36) % RDW 13.2 (11.6-14.8) % Plt Count 343 (150-400) X10^3/uL Neut % (Auto) 68.8 (50-75) % Lymph % (Auto) 22.5 L (25-40) % Cass % (Auto) 6.5 (3-14) % Eos % (Auto) 1.7 L (2-4) % Baso % (Auto) 0.5 (0-2) % Neut # (Auto) 6200 (6304-6104) /uL Lymph # (Auto) 2000 (7112-3439) /uL Cass # (Auto) 600 (0-900) /uL Eos # (Auto) 200 (0-450) /uL Baso # (Auto) 0 (0-100) /uL PT 9.9 L (10.1-12.7) SECONDS INR 0.9 (0.9-1.3) APTT 29 (26.4-36.2) SECONDS Sodium 136 L (137-145) mmol/L Potassium 4.3 (3.4-5.1) mmol/L Chloride 102 (98-107) mmol/L Carbon Dioxide 28 (22-32) mmol/L BUN 15 (7-17) mg/dL Creatinine 0.90 (0.52-1.04) mg/dL Estimated GFR > 60.0 (>60) mL/min BUN/Creatinine Ratio 16.7 (6-22) Glucose 86 (70-100) mg/dL Lactate (0.7-2.1) mmol/L Calcium 9.0 (8.4-10.2) mg/dL Total Bilirubin 0.2 (0.2-1.3) mg/dL AST 19 (14-36) IU/L ALT 10 (9-52) IU/L Alkaline Phosphatase 67 (38-126) U/L Total Protein 7.5 (6.3-8.2) g/dL Albumin 4.1 (3.5-5.0) g/dL Globulin 3.4 (1.7-4.1) g/dL Albumin/Globulin Ratio 1.2 (1.0-2.8) Lipase 126 (23-300) U/L 02/25/19 Range/Units 17:45 WBC (4.5-11.0) X10^3/uL RBC (4.0-5.2) X10^6/uL Hgb (12.0-16.0) g/dL Hct (36-46) % MCV (80-100) fL MCH (26-34) PG MCHC (30-36) % RDW (11.6-14.8) % Plt Count (150-400) X10^3/uL Neut % (Auto) (50-75) % Lymph % (Auto) (25-40) % Cass % (Auto) (3-14) % Eos % (Auto) (2-4) % Baso % (Auto) (0-2) % Neut # (Auto) (2044-0169) /uL Lymph # (Auto) (8059-6973) /uL Cass # (Auto) (0-900) /uL Eos # (Auto) (0-450) /uL Baso # (Auto) (0-100) /uL PT (10.1-12.7) SECONDS INR (0.9-1.3) APTT (26.4-36.2) SECONDS Sodium (137-145) mmol/L Potassium (3.4-5.1) mmol/L Chloride (98-107) mmol/L Carbon Dioxide (22-32) mmol/L BUN (7-17) mg/dL Creatinine (0.52-1.04) mg/dL Estimated GFR (>60) mL/min BUN/Creatinine Ratio (6-22) Glucose (70-100) mg/dL Lactate 0.5 L (0.7-2.1) mmol/L Calcium (8.4-10.2) mg/dL Total Bilirubin (0.2-1.3) mg/dL AST (14-36) IU/L ALT (9-52) IU/L Alkaline Phosphatase (38-126) U/L Total Protein (6.3-8.2) g/dL Albumin (3.5-5.0) g/dL Globulin (1.7-4.1) g/dL Albumin/Globulin Ratio (1.0-2.8) Lipase (23-300) U/L Point of care testing: Point of Care Testing Test Results Negative Urine Dip Bedside Urine Glucose Negative Bedside Urine Bilirubin - Negative Bedside Urine Ketone - Negative Urine Specific [place] 1.020 Bedside Urine Occult Blood - Negative Bedside Urine pH 6.0 Bedside Urine Protein - Negative Bedside Urine Urobilinogen - Negative Bedside Urine Nitrite - Negative Bedside Urine Leukocytes - Negative Esterase Imaging Data CT scan - abdomen: Radiologist's impression: [address] [place] [address] CT Scan Report Signed Patient: Glenys Dhillon [facility]#: [id number] : 1970Acct:[id number] Age/Sex: 48 / FDate of Service: 02/25/19 Loc: ED Accession Number: [id number] Procedure: CT abdomen pelvis w con Ordering Provider: Elias Glass D.O. PROCEDURE: CT ABDOMEN PELVIS W CON INDICATIONS: Left-sided abdominal pain TECHNIQUE: After the administration of intravenous contrast, 5 mm thick sections acquired from the diaphragm to the symphysis. 5 mm coronal and sagittal reformats were acquired. For radiation dose reduction, the following was used: automated exposure control, adjustment of mA and/or kV according to patient size. COMPARISON: [facility], CT, CT ABDOMEN PELVIS W CON, 03/17/2018, 19:31. [facility], CT, ABDOMEN/PELVIS WITH CONTRAST, 11/19/2017, 18:33. [facility], CT, C-SPINE WITHOUT CONTRAST, 09/13/2017, 12:48. [facility], CT, KIDNEY/ URETER/BLADDER, 06/13/2016, 19:40. FINDINGS: Image quality: Excellent. ABDOMEN: Lung bases: Lung bases are clear. Heart size is normal. Solid organs: Liver is normal in size and enhancement. Gallbladder is surgically absent. There is mild intrahepatic and extrahepatic biliary duct dilatation, including mild dilatation of the pancreatic duct. Pancreas enhances normally. Spleen is normal in size and enhancement. No adrenal nodules. No hydronephrosis. There are punctate bilateral nonobstructing nephroliths. There are bilateral parapelvic renal cysts measuring up to 3.0 cm in greatest diameter. Peritoneum and bowel: There are post surgical changes of the bowel with a surgical anastomosis identified in the anterior midline lower abdomen/pelvis. There are post surgical changes of prior colonic resection with residual distal colon identified in the pelvis. No CT evidence of small bowel obstruction. No free fluid or air. Nodes and vessels: No retroperitoneal or mesenteric adenopathy by size criteria. Aorta and inferior vena cava are normal in size. Miscellaneous: There is a fat and small bowel containing hernia of the anterior wall of the left upper quadrant of the abdomen on axial image 40 of series 2, without evidence of bowel edema. There are postsurgical changes of the anterior abdominal wall. PELVIS: Genitourinary: Bladder wall thickness is normal. Uterus is present. There is a 2.5 cm left adnexal follicle. There is a 1.0 cm involuting follicle of the right adnexa. Miscellaneous: No inguinal hernias or adenopathy. Bones: No suspicious bony lesions. Mild multilevel degenerative changes of the lumbar spine noted. IMPRESSION: 1. Bilateral punctate nonobstructing nephroliths. No hydronephrosis bilaterally. 2. Postsurgical changes of the colon and anterior abdominal wall. No CT evidence of small bowel obstruction. 3. Small bowel containing hernia of the anterior wall of the left upper quadrant of the abdomen, without evidence of small bowel edema. 4. Mild intrahepatic and intrahepatic biliary ductal dilatation, likely secondary to the postcholecystectomy state. Dictated by: Josh Ahuja M.D. on 02/25/2019 at 19:01 Approved by: Josh Ahuja M.D. on 02/25/2019 at 19:11 [facility] Narrative Medical decision making narrative: Patient's CT scan of her abdomen shows no signs of acute pathology. She did not vomit here in the emergency department. She was given nausea medication and pain medication. Initial order of morphine was refused because the patient states she becomes very itchy with this medication patient specifically asked for Dilaudid. After she was administered Dilaudid she stated that the half a mg that she received was not going to do anything because she was on Suboxone. She has multiple times for medications. I informed her that unfortunately because of the Suboxone it would be very difficult to get her pain under control. Radiology stated that they would not do the breast ultrasound here in the emergency department because they stated that she needed an outpatient workup to include mammogram. I informed the patient of this. I informed her that she should talk with her primary doctor about further evaluation. Patient stated that if I was not going to give her any more pain medication that she does wanted to go home. She stated that she was hungry and tired. This prior to her CT result. Informed her that she should stay for the results of the CT scan because there could be a surgical issue. She stated that she was okay with going home. During this conversation the CT results did return. I informed her of the results of this. I offered her more nausea medication but she declined. Informed her that she could return to the emergency department at any point and have she had new or worsening symptoms. She expressed understanding and agreement. Patient was alert oriented x3 and in my opinion have the capacity to make decisions. Discharge Plan Departure Patient Disposition: Left Against Medical Advice Clinical Impression: Breast lump or mass Abdominal pain Qualifiers: Abdominal location: generalized Qualified Code(s): R10.84 - Generalized abdominal pain Vomiting Qualifiers: Vomiting type: unspecified Vomiting Intractability: non-intractable Nausea presence: with nausea Qualified Code(s): R11.2 - Nausea with vomiting, unspecified Instructions: Acute Abdominal Pain Activity Restrictions/Additional Instructions: You decided to leave against medical advice. Your CT scan did not show any signs of surgical pathology or blockages. You do need to talk with your primary doctor regarding the mass in your right breast. ED need ultrasound and a mammog sadi but this needs to be ordered as an outpatient. You can return to the emergency department at any time for new or worsening symptoms Prescriptions: No Action glecaprevir-pibrentasvir 100-40 mg tablet 3 tab PO DAILY 28 Days Qty: 84 RF: 0 duloxetine 60 mg capsule,delayed release(DR/EC) 60 mg PO DAILY Qty: 90 RF: 1 hydroxyzine pamoate 25 mg capsule 25 mg PO Q6-8H PRN (Reason: itching) Qty: 360 RF: 1 ondansetron 4 mg tablet,disintegrating 4 mg PO TID-QID PRN (Reason: nausea and vomiting) Qty: 20 RF: 0 dextroamphetamine-amphetamine 30 mg capsule,extended release 24hr 30 mg PO QAM RF: 0 trazodone 50 mg tablet 50 mg PO BEDTIME PRN (Reason: Insomnia) RF: 0 ranitidine HCl 300 mg tablet 300 mg PO BEDTIME RF: 0 sumatriptan succinate 50 mg tablet 50 mg PO PRN PRN (Reason: Migraine Headache) RF: 0 oxycodone-acetaminophen 10-325 mg tablet 1 tab PO Q4-6H PRN (Reason: pain) RF: 0 buprenorphine-naloxone [Suboxone] 8-2 mg film 1 film sublingual [id number] RF: 0 lamotrigine [Lamictal] 200 mg tablet 200 mg PO DAILY RF: 0 Stand Alone Forms: Against Medical Advice
--- NOTE | 2019-02-25 16:50 | DI.CT.S_ITS ---
PROCEDURE: CT ABDOMEN PELVIS W CON INDICATIONS: Left-sided abdominal pain TECHNIQUE: After the administration of intravenous contrast, 5 mm thick sections acquired from the diaphragm to the symphysis. 5 mm coronal and sagittal reformats were acquired. For radiation dose reduction, the following was used: automated exposure control, adjustment of mA and/or kV according to patient size. COMPARISON: [facility], CT, CT ABDOMEN PELVIS W CON, 03/17/2018, 19:31. [facility], CT, ABDOMEN/PELVIS WITH CONTRAST, 11/19/2017, 18:33. [facility], CT, C-SPINE WITHOUT CONTRAST, 09/13/2017, 12:48. [facility], CT, KIDNEY/ URETER/BLADDER, 06/13/2016, 19:40. FINDINGS: Image quality: Excellent. ABDOMEN: Lung bases: Lung bases are clear. Heart size is normal. Solid organs: Liver is normal in size and enhancement. Gallbladder is surgically absent. There is mild intrahepatic and extrahepatic biliary duct dilatation, including mild dilatation of the pancreatic duct. Pancreas enhances normally. Spleen is normal in size and enhancement. No adrenal nodules. No hydronephrosis. There are punctate bilateral nonobstructing nephroliths. There are bilateral parapelvic renal cysts measuring up to 3.0 cm in greatest diameter. Peritoneum and bowel: There are post surgical changes of the bowel with a surgical anastomosis identified in the anterior midline lower abdomen/pelvis. There are post surgical changes of prior colonic resection with residual distal colon identified in the pelvis. No CT evidence of small bowel obstruction. No free fluid or air. Nodes and vessels: No retroperitoneal or mesenteric adenopathy by size criteria. Aorta and inferior vena cava are normal in size. Miscellaneous: There is a fat and small bowel containing hernia of the anterior wall of the left upper quadrant of the abdomen on axial image 40 of series 2, without evidence of bowel edema. There are postsurgical changes of the anterior abdominal wall. PELVIS: Genitourinary: Bladder wall thickness is normal. Uterus is present. There is a 2.5 cm left adnexal follicle. There is a 1.0 cm involuting follicle of the right adnexa. Miscellaneous: No inguinal hernias or adenopathy. Bones: No suspicious bony lesions. Mild multilevel degenerative changes of the lumbar spine noted. IMPRESSION: 1. Bilateral punctate nonobstructing nephroliths. No hydronephrosis bilaterally. 2. Postsurgical changes of the colon and anterior abdominal wall. No CT evidence of small bowel obstruction. 3. Small bowel containing hernia of the anterior wall of the left upper quadrant of the abdomen, without evidence of small bowel edema. 4. Mild intrahepatic and intrahepatic biliary ductal dilatation, likely secondary to the postcholecystectomy state. Dictated by: Josh Ahuja M.D. on 02/25/2019 at 19:01 Approved by: Josh Ahuja M.D. on 02/25/2019 at 19:11
[2019-02-25] MEDS: ONDANSETRON 4 MG/2 ML INJ IV (17:39)
[2019-02-25] MEDS: SODIUM CHLORIDE 0.9% 1,000 ML 1000 ML IV (17:40)
[2019-02-25] MEDS: HYDROMORPHONE 1 MG INJ 0.5 MG IV (17:40)
[2019-02-25 17:44] LABS: INR 0.9 (0.9-1.3); Prothrombin Time 9.9 SECONDS (10.1-12.7)
[2019-02-25 17:46] LABS: PTT Partial Thromboplastin Tim 29 SECONDS (26.4-36.2)
[2019-02-25 17:48] LABS: Alanine Aminotransferase 10 IU/L (9-52); Albumin 4.1 g/dL (3.5-5.0); Albumin Globulin Ratio 1.2 (1.0-2.8); Alkaline Phosphatase 67 U/L (38-126); Aspartate Aminotransferase 19 IU/L (14-36); BUN Creatinine Ratio 16.7 (6-22); Bilirubin Total 0.2 mg/dL (0.2-1.3); Blood Urea Nitrogen 15 mg/dL (7-17); Carbon Dioxide 28 mmol/L (22-32); Chloride 102 mmol/L (98-107); Estimated Glomerular Filt Rate > 60.0 mL/min (>60); Globulin 3.4 g/dL (1.7-4.1); Glucose 86 mg/dL (70-100); HEMOLYSIS < 15 (0-50); Lipase 126 U/L (23-300); Potassium 4.3 mmol/L (3.4-5.1); Sodium 136 mmol/L (137-145); Total Protein 7.5 g/dL (6.3-8.2)
[2019-02-25 17:58] LABS: Add Manual Diff / Slide Review NO; Basophils Absolute Auto 0 /uL (0-100); Basophils Percent Auto 0.5 % (0-2); Eosinophils Absolute Auto 200 /uL (0-450); Eosinophils Percent Auto 1.7 % (2-4); Hematocrit 39.1 % (36-46); Hemoglobin 13.3 g/dL (12.0-16.0); Lymphocytes Absolute Auto 2000 /uL (1100-4500); Lymphocytes Percent Auto 22.5 % (25-40); Mean Corpuscular HGB Conc 33.9 % (30-36); Mean Corpuscular Hemoglobin 31.2 PG (26-34); Mean Corpuscular Volume 92.1 fL (80-100); Monocytes Absolute Auto 600 /uL (0-900); Monocytes Percent Auto 6.5 % (3-14); Neutrophils Absolute Auto 6200 /uL (1500-7000); Neutrophils Percent Auto 68.8 % (50-75); Platelet Count 343 X10^3/uL (150-400); Red Blood Cell Count 4.25 X10^6/uL (4.0-5.2); Red Cell Distribution Width 13.2 % (11.6-14.8)
[2019-02-25 18:08] LABS: Lactate (Lactic Acid) 0.5 mmol/L (0.7-2.1)
[2019-02-25 18:30] VITALS: BP 151/94; PULSE 82; RESP 14; O2SAT 100
--- NOTE | 2019-02-25 18:37 | PC.NURSE ---
pt requesting more pain medication, dr. mitchell aware, no orders noted.
== END 2019-02-25 19:22 | disposition left against medical advice (07) ==
PROVIDERS: Emergency Provider Emergency Medicine
DX: R10.84 Generalized abdominal pain (principal); R11.2 Nausea with vomiting, unspecified; N63.0 Unspecified lump in unspecified breast; R03.0 Elevated blood-pressure reading, without diagnosis of hypertension; Z53.20 Procedure and treatment not carried out because of patient's decision for unspecified reasons
CPT/HCPCS: 36591; 74177; 80053; 81003; 81025; 83605; 83690; 85025; 85610; 85730; 96361; 96374; 96375; 99283; 99285; J1170; J2405

== ENCOUNTER 2019-11-13 21:08 | Emergency (ER) | payer MEDICARE, SELFPAY ==
[2019-11-13 21:15] VITALS: BP 142/93; PULSE 104; RESP 18; TEMP 36.8; O2SAT 100; BMI 29.2
--- NOTE | 2019-11-13 21:17 | ED.GENADULT ---
HPI - General Adult General Chief complaint: Fever Stated complaint: cancer patient,feeling sick,hot/cold,pain,nausea Time Seen by Provider: 11/13/19 21:14 Source: patient and family () Mode of arrival: Ambulatory Limitations: no limitations History of Present Illness HPI narrative: 49-year-old female comes in with complaint of feeling chilled and feverish intermittently with occasional sweats. She states she has had a little bit of runny nose since she finished chemo 1 month ago. She denies any chest pain or shortness of breath. She denies any cough for other difficulties with breathing. Patient states no abdominal pain. She has been nauseated but not actively vomiting. She has had normal bowel movements with no diarrhea or constipation. She denies frequency, dysuria urgency. She has not had any rashes or skin changes. She states it hurts all over and in her bones. Patient finished chemotherapy for breast cancer on October 14 she is scheduled for mastectomy bilaterally on November 17 in [place]. Patient states she has not had any sick contacts. She has not had any major changes in her medications although she was given some Xanax for anxiety although she felt it just made her sleepy. She does take Suboxone daily, duloxetine and several other medications. She has had multiple abdominal surgeries in the past with a large midline abdominal scar. Patient states that her symptoms are not related to her abdomen today. She does have a port in place. Related Data Home Medications Medication Instructions Recorded Confirmed glecaprevir 100 mg-pibrentasvir 40 3 tab PO DAILY 28 Days #84 tab 08/11/18 07/27/19 mg tablet buprenorphine-naloxone [Suboxone] 1 film SUBLINGUAL DAILYX4 02/25/19 07/27/19 oxycodone-acetaminophen 1 tab PO Q4-6H PRN 02/25/19 07/27/19 ranitidine HCl 300 mg PO BEDTIME 02/25/19 07/27/19 sumatriptan succinate 50 mg PO PRN PRN 02/25/19 07/27/19 Previous Rx's Medication Instructions Recorded ondansetron 4 mg PO TID-QID PRN #20 tab 12/26/18 hydroxyzine pamoate 25 mg capsule 25 mg PO Q6-8H PRN #360 cap 02/02/19 duloxetine 60 mg capsule,delayed 60 mg PO DAILY #90 cap 04/27/19 release lamotrigine 200 mg tablet 200 mg PO DAILY #90 tab 04/27/19 trazodone 50 mg tablet 50 mg PO BEDTIME PRN #90 tab 04/27/19 dextroamphetamine-amphetamine ER 30 mg PO QAM #30 cap 09/16/19 30 mg 24hr capsule,extend release Allergies Allergy/AdvReac Type Severity Reaction Status Date / Time metoclopramide [From Reglan] Allergy Intermediate restless Verified 07/27/19 15:51 leg syndrome ketorolac [From TORADOL] Allergy Unknown HIVES Verified 07/27/19 15:51 morphine [MORPHINE] Allergy Unknown HIVES Verified 07/27/19 15:51 tramadol Allergy Hives Verified 07/27/19 15:51 Review of Systems Review of Systems ROS Unobtainable: All systems reviewed & are unremarkable except as noted in HPI and below Patient History Medical History (Updated 11/13/19 @ 23:25 by Renata Ch DO) Breast cancer (Acute) Opioid abuse (Acute) Surgical History H/O colectomy (Acute) Social History Smoking Status: Current every day smoker Smoking Status: Current every day smoker alcohol intake frequency: holidays/special occasions only Substance Use Type: does not use Exam Narrative Exam Narrative: GEN: well nourished, well appearing female, alert and oriented x 3, patient appears to be in mild distress. No diaphoresis. HEENT: Atraumatic, patient has near-total hair loss typical with chemotherapy, pupils are equal round reactive to light, extraocular movements are intact, nares are clear, TMs are clear with no fluid, there is no conjunctival pallor. Throat is clear without any exudates, erythema, tonsillar enlargement or uvular deviation HEART: Regular rate and rhythm without murmur, clicks, rubs. Pulses are equal in upper and lower extremities LUNGS:Lungs clear to auscultation, no wheezes, rales, crackles, chest moves symmetrically, no tachypnea accessory muscle use ABD:bowel sounds normal, soft, non-tender, no guarding, rebound, rigidity, no masses noted, no hepatosplenomegaly :No CVA tenderness MSCL: Non-tender, no muscle atrophy, muscles strength 5/5 upper and lower extremities, full range of motion, normal gait NEURO:CN 2-12 intact, sensation normal. SKIN: no rash, no petechiae or other symptoms. Initial Vital Signs Initial Vital Signs: Vital Signs Temperature 98.2 F 11/13/19 21:15 Pulse Rate 104 H 11/13/19 21:15 Respiratory Rate 18 11/13/19 21:15 Blood Pressure 142/93 H 11/13/19 21:15 Pulse Oximetry 100 11/13/19 21:15 Scores GCS Ta coma scale eye opening: Spontaneous Ta coma scale verbal response: Orientated [place] coma scale motor response: Obey commands [place] coma scale total score: 15 Course Orders Ordered: ED Orders 11/13/19 21:20 Influenza A & B (PCR) Stat 11/13/19 21:30 Blood Culture Stat 11/13/19 21:33 XR chest 2V Stat 11/13/19 21:42 Urinalysis and Microscopic Stat 11/13/19 22:24 Complete Blood Count AUTO DIFF Stat Comprehensive Metabolic Panel Stat Lactate (Lactic Acid) Stat Partial Thromboplastin Time Stat Procalcitonin Stat Prothrombin Time INR Stat Discontinued Medications Heparin Sodium (Porcine) (Heparin Flush (Port)) 500 unit IV PRN PRN PRN Reason: Flush Last Admin: 11/13/19 23:58 Dose: 500 unit Documented by: FANTA Hydromorphone HCl (Dilaudid) 0.5 mg IV NOW ONE Stop: 11/13/19 21:34 Last Admin: 11/13/19 22:32 Dose: 0.5 mg Documented by: BC Hydromorphone HCl (Dilaudid) 0.5 mg IV NOW ONE Stop: 11/13/19 23:30 Last Admin: 11/13/19 23:42 Dose: 0.5 mg Documented by: FANTA Ondansetron HCl (Zofran) 4 mg IV NOW ONE Stop: 11/13/19 21:35 Last Admin: 11/13/19 22:32 Dose: 4 mg Documented by: BC Vital Signs Vital signs: Vital Signs - 8 hr 11/13/19 21:15 11/13/19 23:17 11/13/19 23:58 Temperature 98.2 F 97.8 F Pulse Rate 104 H 86 78 Respiratory Rate 18 14 Blood Pressure 142/93 H 107/63 Blood Pressure [Left Arm] 119/75 Pulse Oximetry 100 98 99 Medical Decision Making Lab Data Lab results reviewed: Yes I reviewed the patient's lab results. Result diagrams: 11/13/19 22:24 11/13/19 22:24 Labs: Lab Results 11/13/19 11/13/19 11/13/19 Range/Units 21:20 21:42 22:24 WBC 3.4 L (4.5-11.0) X10^3/uL RBC 3.30 L (4.0-5.2) X10^6/uL Hgb 10.5 L (12.0-16.0) g/dL Hct 31.0 L (36-46) % MCV 93.9 (80-100) fL MCH 31.8 (26-34) PG MCHC 33.8 (30-36) % RDW 15.7 H (11.6-14.8) % Plt Count 317 (150-400) X10^3/uL Neut % (Auto) 53.4 (50-75) % Lymph % (Auto) 29.8 (25-40) % [place] % (Auto) 11.8 (3-14) % Eos % (Auto) 4.0 (2-4) % Baso % (Auto) 1.0 (0-2) % Neut # (Auto) 1800 (4231-8568) /uL Lymph # (Auto) 1000 L (9383-2453) /uL [place] # (Auto) 400 (0-900) /uL Eos # (Auto) 100 (0-450) /uL Baso # (Auto) 0 (0-100) /uL PT (10.1-12.7) SECONDS INR (0.9-1.3) APTT (26.4-36.2) SECONDS Sodium (137-145) mmol/L Potassium (3.4-5.1) mmol/L Chloride (98-107) mmol/L Carbon Dioxide (22-32) mmol/L BUN (7-17) mg/dL Creatinine (0.52-1.04) mg/dL Estimated GFR (>60) mL/min BUN/Creatinine Ratio (6-22) Glucose (70-100) mg/dL Lactate (0.7-2.1) mmol/L Calcium (8.4-10.2) mg/dL Total Bilirubin (0.2-1.3) mg/dL AST (14-36) IU/L ALT (<35) IU/L Alkaline Phosphatase (38-126) U/L Total Protein (6.3-8.2) g/dL Albumin (3.5-5.0) g/dL Globulin (1.7-4.1) g/dL Albumin/Globulin Ratio (1.0-2.8) Procalcitonin (<0.5) ng/mL Urine Color Yellow Urine Appearance Clear Urine pH 6.5 (4.5-8.0) Ur Specific [place] 1.020 (1.000-1.035) Urine Protein Negative (Negative) Urine Glucose (UA) Negative (Negative) g/dL Urine Ketones Negative (NEGATIVE) Urine Occult Blood Negative (Negative) Urine Nitrate Negative (Negative) Urine Bilirubin Negative (NEGATIVE) Urine Urobilinogen 0.2 (0.2) E.U./dL Ur Leukocyte Esterase Negative (NEGATIVE) Urine RBC None seen (0-5/HPF) Urine WBC None seen (0-5/HPF) Urine Bacteria None seen (None) Ur Culture Indicated? Cult not indicated Influenza A (RT-PCR) Flu a negative (NEGATIVE) Influenza B (RT-PCR) Flu b negative (NEGATIVE) 11/13/19 11/13/19 11/13/19 Range/Units 22:24 22:24 22:24 WBC (4.5-11.0) X10^3/uL RBC (4.0-5.2) X10^6/uL Hgb (12.0-16.0) g/dL Hct (36-46) % MCV (80-100) fL MCH (26-34) PG MCHC (30-36) % RDW (11.6-14.8) % Plt Count (150-400) X10^3/uL Neut % (Auto) (50-75) % Lymph % (Auto) (25-40) % [place] % (Auto) (3-14) % Eos % (Auto) (2-4) % Baso % (Auto) (0-2) % Neut # (Auto) (3220-1753) /uL Lymph # (Auto) (1570-9921) /uL [place] # (Auto) (0-900) /uL Eos # (Auto) (0-450) /uL Baso # (Auto) (0-100) /uL PT (10.1-12.7) SECONDS INR (0.9-1.3) APTT (26.4-36.2) SECONDS Sodium 141 (137-145) mmol/L Potassium 3.5 (3.4-5.1) mmol/L Chloride 105 (98-107) mmol/L Carbon Dioxide 27 (22-32) mmol/L BUN 14 (7-17) mg/dL Creatinine 0.90 (0.52-1.04) mg/dL Estimated GFR > 60.0 (>60) mL/min BUN/Creatinine Ratio 15.6 (6-22) Glucose 95 (70-100) mg/dL Lactate 0.6 L (0.7-2.1) mmol/L Calcium 9.7 (8.4-10.2) mg/dL Total Bilirubin 0.2 (0.2-1.3) mg/dL AST 34 (14-36) IU/L ALT 23 (<35) IU/L Alkaline Phosphatase 74 (38-126) U/L Total Protein 7.5 (6.3-8.2) g/dL Albumin 4.3 (3.5-5.0) g/dL Globulin 3.2 (1.7-4.1) g/dL Albumin/Globulin Ratio 1.3 (1.0-2.8) Procalcitonin < 0.05 (<0.5) ng/mL Urine Color Urine Appearance Urine pH (4.5-8.0) Ur Specific [place] (1.000-1.035) Urine Protein (Negative) Urine Glucose (UA) (Negative) g/dL Urine Ketones (NEGATIVE) Urine Occult Blood (Negative) Urine Nitrate (Negative) Urine Bilirubin (NEGATIVE) Urine Urobilinogen (0.2) E.U./dL Ur Leukocyte Esterase (NEGATIVE) Urine RBC (0-5/HPF) Urine WBC (0-5/HPF) Urine Bacteria (None) Ur Culture Indicated? Influenza A (RT-PCR) (NEGATIVE) Influenza B (RT-PCR) (NEGATIVE) 11/13/19 Range/Units 22:24 WBC (4.5-11.0) X10^3/uL RBC (4.0-5.2) X10^6/uL Hgb (12.0-16.0) g/dL Hct (36-46) % MCV (80-100) fL MCH (26-34) PG MCHC (30-36) % RDW (11.6-14.8) % Plt Count (150-400) X10^3/uL Neut % (Auto) (50-75) % Lymph % (Auto) (25-40) % [place] % (Auto) (3-14) % Eos % (Auto) (2-4) % Baso % (Auto) (0-2) % Neut # (Auto) (1855-4511) /uL Lymph # (Auto) (7954-3567) /uL [place] # (Auto) (0-900) /uL Eos # (Auto) (0-450) /uL Baso # (Auto) (0-100) /uL PT 11.4 (10.1-12.7) SECONDS INR 1.0 (0.9-1.3) APTT 60 H D (26.4-36.2) SECONDS Sodium (137-145) mmol/L Potassium (3.4-5.1) mmol/L Chloride (98-107) mmol/L Carbon Dioxide (22-32) mmol/L BUN (7-17) mg/dL Creatinine (0.52-1.04) mg/dL Estimated GFR (>60) mL/min BUN/Creatinine Ratio (6-22) Glucose (70-100) mg/dL Lactate (0.7-2.1) mmol/L Calcium (8.4-10.2) mg/dL Total Bilirubin (0.2-1.3) mg/dL AST (14-36) IU/L ALT (<35) IU/L Alkaline Phosphatase (38-126) U/L Total Protein (6.3-8.2) g/dL Albumin (3.5-5.0) g/dL Globulin (1.7-4.1) g/dL Albumin/Globulin Ratio (1.0-2.8) Procalcitonin (<0.5) ng/mL Urine Color Urine Appearance Urine pH (4.5-8.0) Ur Specific [place] (1.000-1.035) Urine Protein (Negative) Urine Glucose (UA) (Negative) g/dL Urine Ketones (NEGATIVE) Urine Occult Blood (Negative) Urine Nitrate (Negative) Urine Bilirubin (NEGATIVE) Urine Urobilinogen (0.2) E.U./dL Ur Leukocyte Esterase (NEGATIVE) Urine RBC (0-5/HPF) Urine WBC (0-5/HPF) Urine Bacteria (None) Ur Culture Indicated? Influenza A (RT-PCR) (NEGATIVE) Influenza B (RT-PCR) (NEGATIVE) Imaging Data Chest x-ray: Radiologist's Impression: [address] [address] XRay Report Signed Patient: Glenys Dhillon [facility]#: [id number] : 1970Acct:[id number] Age/Sex: 49 / FDate of Service: 11/13/19 Loc: ED Accession Number: [id number] Procedure: XR chest 2V Ordering Provider: Renata Ch D.O. PROCEDURE: XR CHEST 2V INDICATIONS: feeling hot/cold, nausea, chemo finished 1 month ago TECHNIQUE: 2 views of the chest were acquired. COMPARISON: [facility], CT, CT ABDOMEN PELVIS W CON, 02/25/2019, 17:50. FINDINGS: Surgical changes and devices: Left-sided port with the catheter tip at the cavoatrial junction. Cholecystectomy clips. Lungs and pleura: Lungs are clear. No pleural effusions or pneumothorax. Mediastinum: Mediastinal contours are normal. Heart size is normal. Bones and chest wall: No suspicious bony abnormalities. Soft tissues appear unremarkable. No dilated loops of bowel in the upper abdomen seen. IMPRESSION: No acute cardiopulmonary abnormality. Dictated by: Rajeev Patiño M.D. on 11/13/2019 at 22:04 Approved by: Rajeev Patiño M.D. on 11/13/2019 at 22:06 [facility] Narrative Medical decision making narrative: Patient comes to department with vague symptoms that may be viral in origin or possibly influenza but patient did have chemo month ago and could possibly be neutropenic she does not have any clear source on exam today or from her history. Fluids, chest x-ray as well as lab work and urine were ordered. Patient states she is having significant pain all over so pain medication was ordered she did request Benadryl with the Dilaudid as she is allergic to morphine and Toradol and states that she would like Benadryl with that. We discussed that I do not typically give Benadryl with Dilaudid. She has been nauseated and we discussed doing antiemetic and some fluids. Patient states itching after dilaudid and nursing reports this also. Labs show hemoglobin of 10 with a hemoglobin that was 13 in February, white count is 3.4 with an RDW of 15.7. Neutrophils are normal range. Patient has been receiving her care at another facility and I do not have any more recent labs in February of 2019. Electrolytes are normal range no elevation of BUN with normal creatinine, lactate, glucose and LFTs. Procalcitonin is less than 0.05 making acute bacterial infection less likely, urinalysis is negative with a negative influenza findings. Blood cultures are pending and patient and are aware that these take about 48 hours to result typically. Patient's blood pressure is been stable heart rate was 104 initially she received fluids in is in the 80s. Patient states she is feeling better. She did request an additional dose of pain medication prior to discharge. States chills have improved and nausea resolved. Discharge Plan Departure Patient Disposition: Home Clinical Impression: Anemia Discharge Date/Time: 11/14/19 00:05 Activity Restrictions/Additional Instructions: Follow up with your physician on Friday for recheck. Your blood cultures are pending, if positive you will receive a phone call to update you. Your labs show anemia and a low white count. Continue home medications as prescribed. Return to the ER for fevers greater 100.4 F, passing out, new chest pain or shortness of breath, no abdominal pain, persistent vomiting, black or bloody stools or other new or concerning symptoms. Prescriptions: No Action trazodone 50 mg tablet 50 mg PO BEDTIME PRN (Reason: Insomnia) Qty: 90 RF: 3 duloxetine 60 mg capsule,delayed release(DR/EC) 60 mg PO DAILY Qty: 90 RF: 3 lamotrigine [Lamictal] 200 mg tablet 200 mg PO DAILY Qty: 90 RF: 3 glecaprevir-pibrentasvir 100-40 mg tablet 3 tab PO DAILY 28 Days Qty: 84 RF: 0 hydroxyzine pamoate 25 mg capsule 25 mg PO Q6-8H PRN (Reason: itching) Qty: 360 RF: 1 dextroamphetamine-amphetamine 30 mg capsule,extended release 24hr 30 mg PO QAM Qty: 30 RF: 0 ondansetron 4 mg tablet,disintegrating 4 mg PO TID-QID PRN (Reason: nausea and vomiting) Qty: 20 RF: 0 ranitidine HCl 300 mg tablet 300 mg PO BEDTIME RF: 0 sumatriptan succinate 50 mg tablet 50 mg PO PRN PRN (Reason: Migraine Headache) RF: 0 oxycodone-acetaminophen 10-325 mg tablet 1 tab PO Q4-6H PRN (Reason: pain) RF: 0 buprenorphine-naloxone [Suboxone] 8-2 mg film 1 film sublingual DAILYX4 RF: 0
--- NOTE | 2019-11-13 21:33 | DI.RAD.S_ITS ---
PROCEDURE: XR CHEST 2V INDICATIONS: feeling hot/cold, nausea, chemo finished 1 month ago TECHNIQUE: 2 views of the chest were acquired. COMPARISON: [facility], CT, CT ABDOMEN PELVIS W CON, 02/25/2019, 17:50. FINDINGS: Surgical changes and devices: Left-sided port with the catheter tip at the cavoatrial junction. Cholecystectomy clips. Lungs and pleura: Lungs are clear. No pleural effusions or pneumothorax. Mediastinum: Mediastinal contours are normal. Heart size is normal. Bones and chest wall: No suspicious bony abnormalities. Soft tissues appear unremarkable. No dilated loops of bowel in the upper abdomen seen. IMPRESSION: No acute cardiopulmonary abnormality. Dictated by: Rajeev Patiño M.D. on 11/13/2019 at 22:04 Approved by: Rajeev Patiño M.D. on 11/13/2019 at 22:06
[2019-11-13 21:47] LABS: Bacteria Urine None Seen; RBC Urine None Seen (0-5/HPF); WBC Urine None Seen (0-5/HPF)
[2019-11-13 21:48] LABS: Appearance Urine UA CLEAR; Bilirubin Urine UA NEGATIVE (NEGATIVE); Color Urine UA YELLOW; Glucose Urine UA NEGATIVE (Negative); Ketones Urine UA NEGATIVE (NEGATIVE); Leukocyte Esterase Urine UA NEGATIVE (NEGATIVE); Nitrite Urine UA NEGATIVE (Negative); Occult Blood Urine UA NEGATIVE (Negative); Protein Urine UA NEGATIVE (Negative); Urobilinogen Urine UA 0.2 E.U./dL (0.2)
[2019-11-13 21:50] LABS: pH Urine UA 6.5 (4.5-8.0)
[2019-11-13 21:55] LABS: Culture Indicated Urine Cult Not Indicated
[2019-11-13 21:55] LABS: Influenza A - CEPHEID Flu A NEGATIVE (NEGATIVE); Influenza B - CEPHEID Flu B NEGATIVE (NEGATIVE)
[2019-11-13] MEDS: ONDANSETRON 4 MG/2 ML INJ IV (22:32)
[2019-11-13] MEDS: HYDROMORPHONE 0.5 MG INJ IV ×2 (22:32→23:42)
[2019-11-13 22:42] LABS: Add Manual Diff / Slide Review NO; Basophils Absolute Auto 0 /uL (0-100); Eosinophils Absolute Auto 100 /uL (0-450); Hemoglobin 10.5 g/dL (12.0-16.0); Lymphocytes Absolute Auto 1000 /uL (1100-4500); Lymphocytes Percent Auto 29.8 % (25-40); Mean Corpuscular HGB Conc 33.8 % (30-36); Mean Corpuscular Hemoglobin 31.8 PG (26-34); Mean Corpuscular Volume 93.9 fL (80-100); Monocytes Absolute Auto 400 /uL (0-900); Monocytes Percent Auto 11.8 % (3-14); Neutrophils Absolute Auto 1800 /uL (1500-7000); Neutrophils Percent Auto 53.4 % (50-75); Platelet Count 317 X10^3/uL (150-400); Prothrombin Time 11.4 SECONDS (10.1-12.7); Red Cell Distribution Width 15.7 % (11.6-14.8); White Blood Cell Count 3.4 X10^3/uL (4.5-11.0)
[2019-11-13 22:45] LABS: PTT Partial Thromboplastin Tim 60 SECONDS (26.4-36.2)
[2019-11-13] MEDS: diphenhydrAMINE 50 MG/ML VIAL (22:45)
[2019-11-13 22:46] LABS: Lactate (Lactic Acid) 0.6 mmol/L (0.7-2.1)
[2019-11-13 22:49] LABS: Alanine Aminotransferase 23 IU/L (<35); Albumin 4.3 g/dL (3.5-5.0); Albumin Globulin Ratio 1.3 (1.0-2.8); Alkaline Phosphatase 74 U/L (38-126); Aspartate Aminotransferase 34 IU/L (14-36); BUN Creatinine Ratio 15.6 (6-22); Bilirubin Total 0.2 mg/dL (0.2-1.3); Blood Urea Nitrogen 14 mg/dL (7-17); Calcium 9.7 mg/dL (8.4-10.2); Carbon Dioxide 27 mmol/L (22-32); Chloride 105 mmol/L (98-107); Estimated Glomerular Filt Rate > 60.0 mL/min (>60); Globulin 3.2 g/dL (1.7-4.1); Glucose 95 mg/dL (70-100); HEMOLYSIS < 15 (0-50); Potassium 3.5 mmol/L (3.4-5.1); Sodium 141 mmol/L (137-145); Total Protein 7.5 g/dL (6.3-8.2)
[2019-11-13 23:07] LABS: Procalcitonin < 0.05 ng/mL (<0.5)
[2019-11-13 23:17] VITALS: BP 119/75; PULSE 86; O2SAT 98
[2019-11-13 23:58] VITALS: BP 107/63; PULSE 78; RESP 14; TEMP 36.6; O2SAT 99
== END 2019-11-14 00:05 | disposition home or self-care (01) ==
PROVIDERS: Emergency Provider Emergency Medicine
DX: D64.9 Anemia, unspecified (principal); R79.89 Other specified abnormal findings of blood chemistry; C50.919 Malignant neoplasm of unspecified site of unspecified female breast; R11.0 Nausea
CPT/HCPCS: 36415; 71046; 80053; 81001; 83605; 84145; 85025; 85610; 85730; 87040; 87502; 96374; 96375; 96376; 99284; J1170; J1200; J1642; J2405